=== PATIENT | female | born 1980 | race Caucasian/White ===

== ENCOUNTER 2017-09-08 10:00 | Inpatient (IN) | payer OTHER ==
[~2017-09-08] VITALS: Ht 172.7 cm; Wt 52.2 kg
== END 2017-09-11 13:33 | DRG 583 ==
LOC: O/R 09-10 06:19 → SURH 09-10 09:15 → SURG-SUITE 09-10 18:48
PROVIDERS: Plastic Surgery
PROC: 0HRV0JZ Replacement of Bilateral Breast with Synthetic Substitute, Open Approach (ICD-10-PCS; principal; 2017-09-10 09:15)
DX: D05.81 Other specified type of carcinoma in situ of right breast (principal); N60.82 Other benign mammary dysplasias of left breast; Z90.13 Acquired absence of bilateral breasts and nipples; Z15.01 Genetic susceptibility to malignant neoplasm of breast; Z42.1 Encounter for breast reconstruction following mastectomy

== ENCOUNTER 2024-10-27 05:35 | Day surgery (SDC) | payer OTHER ==
[2024-10-25 12:04] VITALS: BP 136/85
[~2024-10-27] VITALS: Ht 172.7 cm; Wt 62.1 kg
[2024-10-27] MEDS ORDERED: CEFAZOLIN SODIUM 1,000 MG VIAL ONE (07:29)
[2024-10-27] MEDS ORDERED: BUPIVACAINE HCL/Mpf 0.5% 10ML VIAL ONE (07:30)
[2024-10-27] MEDS ORDERED: LIDOCAINE HCL 1%/EPINEPHRINE 20ML VIAL IJ ONE (07:31)
[2024-10-27] MEDS ORDERED: HEPARIN SODIUM,PORCINE/PF 100 UNIT/ML SYRINGE IV ONE (07:32)
[2024-10-27] MEDS ORDERED: TRAM1TAB98 PO (08:23)
[2024-10-27] MEDS ORDERED: CEFAZOLIN SODIUM 1,000 MG VIAL IV ONE (16:15)
== END 2024-10-27 10:45 | disposition home or self-care (01) ==
LOC: CIR.AMB 05:35
PROVIDERS: ATTEND Surgery
DX: C50.112 Malignant neoplasm of central portion of left female breast (principal); Z91.013 Allergy to seafood
CPT/HCPCS: 36561; C1751